=== PATIENT | female | born 1965 | race Two or more races ===

== ENCOUNTER 2024-08-30 11:01 | Emergency (ER) | payer OTHER ==
[2024-08-30 11:57] VITALS: BP 141/92; PULSE 74; RESP 18; TEMP 97.4; BMI 27.0
[2024-08-30] MEDS ORDERED: IBUPROFEN 600 MG TABLET (FP) PO ONE (12:14)
[2024-08-30] MEDS: IBUPROFEN 600 MG TABLET (FP) PO ONE (12:50)
== END 2024-08-30 13:17 | disposition home or self-care (01) ==
LOC: JERFT 11:01
DX: M25.572 Pain in left ankle and joints of left foot (principal)
CPT/HCPCS: 73590-TC-RT-FY; 73610-TC-LT-FY; 73630-TC-LT; 99283-25